=== PATIENT | female | born 1950 | race Caucasian/White ===

== ENCOUNTER 2017-12-23 09:50 | Emergency (ER) | payer MEDICARE, MEDICAID ==
[~2017-12-23] VITALS: Ht 157.5 cm; Wt 62.7 kg
[~2017-12-23 09:50] MED LIST: AMIO200T57 PO; APIX5TAB3 PO; BENZ-16 PO; BUDE10.2 INH; GUAI1TBM19 PO; INSU100V13 SQ; IPRA3AMP IH; LANTUS SQ; LOSA25TA96 PO; METO-395 PO; NITR0.4T51 SL; PANT20TA2 PO; PRED10TA PO; PRED50TA PO; ROSU40TA PO; TICA90TA PO
[2017-12-23] MEDS ORDERED: ketorolac trometh inj. 60 MG/2 ML VIAL IM ONE (11:15)
[2017-12-23 11:41] VITALS: BP 124/79
== END 2017-12-23 11:51 | disposition home or self-care (01) ==
LOC: ER 09:51
DX: M25.511 Pain in right shoulder (principal); I25.10 Atherosclerotic heart disease of native coronary artery without angina pectoris; I11.0 Hypertensive heart disease with heart failure; I50.9 Heart failure, unspecified; I25.2 Old myocardial infarction; J44.9 Chronic obstructive pulmonary disease, unspecified; E11.9 Type 2 diabetes mellitus without complications; G89.29 Other chronic pain; E78.00 Pure hypercholesterolemia, unspecified; Z85.3 Personal history of malignant neoplasm of breast; Z95.1 Presence of aortocoronary bypass graft; Z98.61 Coronary angioplasty status; Z95.0 Presence of cardiac pacemaker; Z88.5 Allergy status to narcotic agent; Z88.2 Allergy status to sulfonamides; Z88.8 Allergy status to other drugs, medicaments and biological substances; Z79.4 Long term (current) use of insulin; Z79.899 Other long term (current) drug therapy
CPT/HCPCS: 96372; 99283; A4565; J1885

== ENCOUNTER 2018-07-09 21:56 | Emergency (ER) | payer MEDICARE, MEDICAID ==
[~2018-07-09] VITALS: Ht 157.5 cm; Wt 60.0 kg
[~2018-07-09 21:56] MED LIST changes: +AMIO200T40 PO; -AMIO200T57 PO; -BENZ-16 PO; +DOCU-28 PO; +FURO-149 PO; -GUAI1TBM19 PO; +INSU100C4 SQ; +INSU100I29 SQ; -IPRA3AMP IH; +IPRA3AMP31 IH; -LANTUS SQ; +NYST1000 PO; +OMEG1CAP PO; +PRAV40TA3 PO; -PRED10TA PO; -PRED50TA PO; -ROSU40TA PO; -TICA90TA PO; +TRAM50TA2 PO
[2018-07-09 22:59] VITALS: BP 113/38
[2018-07-10] MEDS ORDERED: diphenhydrAMINE 25mg capsule PO ONE (02:20)
== END 2018-07-10 02:34 | disposition home or self-care (01) ==
LOC: ER 21:57
DX: M25.461 Effusion, right knee (principal); J44.9 Chronic obstructive pulmonary disease, unspecified; I25.10 Atherosclerotic heart disease of native coronary artery without angina pectoris; I11.0 Hypertensive heart disease with heart failure; I50.9 Heart failure, unspecified; E78.00 Pure hypercholesterolemia, unspecified; I25.2 Old myocardial infarction; K21.9 Gastro-esophageal reflux disease without esophagitis; E11.9 Type 2 diabetes mellitus without complications; G89.29 Other chronic pain; Z95.0 Presence of cardiac pacemaker; Z98.61 Coronary angioplasty status; Z88.1 Allergy status to other antibiotic agents; Z88.5 Allergy status to narcotic agent; Z88.8 Allergy status to other drugs, medicaments and biological substances; Z79.4 Long term (current) use of insulin; Z79.899 Other long term (current) drug therapy; Z60.2 Problems related to living alone
CPT/HCPCS: 73560; 99284; Q0163

== ENCOUNTER 2018-09-06 10:01 | Emergency (ER) | payer MEDICARE, MEDICAID ==
[~2018-09-06] VITALS: Ht 157.5 cm; Wt 65.9 kg
[2018-09-06 10:07] VITALS: BP 149/81
[2018-09-06] MEDS ORDERED: HYDROcodone/acetaminophen 5mg/325mg tablet PO ONE (10:25)
[2018-09-06 11:00] LABS: CLARITY,URINE CLEAR (Clear); COLOR,URINE YELLOW (Yellow); GLUCOSE, URINE 100 mg/dl (Neg); KETONES,URINE NEGATIVE (Neg); LEUKOCYTE ESTERASE ,URINE NEGATIVE (Neg); NITRITES, URINE NEGATIVE (Neg); OCCULT BLOOD,URINE NEGATIVE (Neg); PROTEIN,URINE NEGATIVE (Neg); UA COLLECTION TYPE CLN CATCH MIDSTREAM
[2018-09-06] MEDS ORDERED: acetaminophen 325mg tablet PO ONE (11:05)
== END 2018-09-06 11:33 | disposition home or self-care (01) ==
LOC: ER 10:01
DX: M25.511 Pain in right shoulder (principal); R30.0 Dysuria; I25.10 Atherosclerotic heart disease of native coronary artery without angina pectoris; I11.0 Hypertensive heart disease with heart failure; I50.9 Heart failure, unspecified; E78.00 Pure hypercholesterolemia, unspecified; I25.2 Old myocardial infarction; J44.9 Chronic obstructive pulmonary disease, unspecified; K21.9 Gastro-esophageal reflux disease without esophagitis; E11.9 Type 2 diabetes mellitus without complications; G89.29 Other chronic pain; Z98.61 Coronary angioplasty status; Z95.0 Presence of cardiac pacemaker; Z98.890 Other specified postprocedural states; Z88.1 Allergy status to other antibiotic agents; Z88.5 Allergy status to narcotic agent; Z88.2 Allergy status to sulfonamides; Z88.8 Allergy status to other drugs, medicaments and biological substances; Z79.4 Long term (current) use of insulin; Z79.899 Other long term (current) drug therapy; Z60.2 Problems related to living alone
CPT/HCPCS: 73030; 81003; 99284

== ENCOUNTER 2019-05-06 21:59 | Emergency (ER) | payer MEDICARE, MEDICAID ==
[~2019-05-06] VITALS: Ht 157.5 cm; Wt 77.3 kg
[~2019-05-06 21:59] MED LIST changes: -AMIO200T40 PO; +AMIO200T61 PO
[2019-05-06 22:45] LABS: BASOPHILS % (AUTO) 0.4 % (0-1); EOSINOPHILS # (AUTO) 0.1 X10'3 (0-0.9); EOSINOPHILS % (AUTO) 1.1 % (0-6); HEMATOCRIT 45.4 % (35.0-45.0); HEMOGLOBIN 14.6 g/dl (12.0-16.0); LYMPHOCYTES # (AUTO) 2.2 X10'3 (1.1-4.8); LYMPHOCYTES % (AUTO) 18.2 % (21-51); MEAN CORPUSCULAR HEMOGLOBIN 26.1 PG (27.0-31.0); MEAN CORPUSCULAR HGB CONC 32.3 g/dL (33.0-36.5); MEAN CORPUSCULAR VOLUME 80.8 FL (78-98); MEAN PLATELET VOLUME 9.2 FL (7.4-10.4); MONOCYTES # (AUTO) 1.7 X10'3 (0-0.9); MONOCYTES % (AUTO) 14.3 % (2-12); PLATELET COUNT 246 X10'3 (140-440); RED BLOOD COUNT 5.62 X10'6 (4.20-5.60); RED CELL DISTRIBUTION WIDTH 17.3 % (11.5-14.5); WHITE BLOOD COUNT 12.2 X10'3 (4.5-11.0)
[2019-05-06] MEDS ORDERED: acetaminophen 325mg tablet PO ONE (22:50)
[2019-05-06 22:56] LABS: CLARITY,URINE CLOUDY (Clear); COLOR,URINE YELLOW (Yellow); GLUCOSE, URINE >=1000 mg/dl (Neg); KETONES,URINE NEGATIVE (Neg); LEUKOCYTE ESTERASE ,URINE SMALL (Neg); NITRITES, URINE NEGATIVE (Neg); OCCULT BLOOD,URINE SMALL (Neg); PROTEIN,URINE NEGATIVE (Neg)
[2019-05-06 22:58] LABS: ALANINE AMINOTRANSFERASE 18 U/L (12-78); ALBUMIN 3.6 G/DL (3.4-5.0); ALBUMIN/GLOBULIN RATIO 0.8 (1.1-1.5); ALKALINE PHOSPHATASE 59 IU/L (46-116); ANION GAP 4 (8-16); ASPARTATE AMINO TRANSFERASE 11 U/L (10-37); BILIRUBIN,TOTAL 0.3 MG/DL (0.1-1.0); BLOOD UREA NITROGEN 35 MG/DL (7-18); BUN/CREATININE RATIO 22.7 (6.6-38.0); CALCIUM 9.2 MG/DL (8.5-10.1); CHLORIDE 99 MMOL/L (99-107); CREATININE 1.54 MG/DL (0.40-0.90); GLUCOSE 405 MG/DL (70-104); POTASSIUM 3.2 MMOL/L (3.5-5.1); SODIUM 137 MMOL/L (135-145); TOTAL CARBON DIOXIDE 33.7 MMOL/L (24-32); TOTAL PROTEIN 8.2 G/DL (6.4-8.2); eGFR 33 ML/MIN
[2019-05-06 22:59] LABS: UA COLLECTION TYPE CLN CATCH MIDSTREAM
[2019-05-06 23:01] LABS: PARTIAL THROMBOPLASTIN TIME 35 SECONDS (22-32)
[2019-05-06 23:02] LABS: BACTERIA,URINE 4+ /HPF (Neg); RBC,URINE NONE SEEN /HPF (0-2); SQUAMOUS EPITHELIAL CELL,UR FEW /LPF (FEW); WBC,URINE TNTC /HPF (0-4)
[2019-05-06 23:03] LABS: WBC CLUMPS,URINE MANY /HPF (NEGATIVE)
[2019-05-06] MEDS ORDERED: potassium Cl 10 mEq/100mL bag IV ONE (23:20)
[2019-05-06] MEDS ORDERED: potassium Cl 20 mEq SR tablet PO ONE (23:20)
[2019-05-06] MEDS ORDERED: normal saline 1000ml 1,000 ML IV ONE (23:20)
[2019-05-06 23:32] LABS: LIPASE 175 U/L (73-393)
[2019-05-06] MEDS ORDERED: CefTRIAXone 2gm/D5W 50ml 50 ML IV ONE (23:55)
[2019-05-07] MEDS ORDERED: PEG1POWD PO (00:35)
[2019-05-07] MEDS ORDERED: BISA-155 PO (00:35)
[2019-05-07] MEDS ORDERED: MAGN296S50 PO (00:35)
[2019-05-07] MEDS ORDERED: CIPR-230 PO (00:35)
[2019-05-07] MEDS ORDERED: GLYC-18 RC (00:36)
[2019-05-07 01:31] VITALS: BP 143/78
--- NOTE | 2019-05-10 11:59 | NUR ---
PT RETURNED CALL REGARDING URINE CULTURE. PT WAS INFORMED THAT THE MEDICATION SHE WAS INITIALLY PERSCRIBED NEEDED TO BE CHANGED PER DR MATSON AND TO DISCONTINUE THE CIPRO SHE IS CURRENTLY TAKING. PT REQUESTED THAT NEW RX BE CALLED INTO [facility] [place]. ZYVOX 600MG PO BID x7 DAYS CALLED INTO [facility] PT REQUESTED.
== END 2019-05-07 01:28 | disposition home or self-care (01) ==
LOC: ER 22:00
DX: E11.65 Type 2 diabetes mellitus with hyperglycemia (principal); K59.00 Constipation, unspecified; N39.0 Urinary tract infection, site not specified; I25.10 Atherosclerotic heart disease of native coronary artery without angina pectoris; I11.0 Hypertensive heart disease with heart failure; I50.9 Heart failure, unspecified; E78.00 Pure hypercholesterolemia, unspecified; I25.2 Old myocardial infarction; J44.9 Chronic obstructive pulmonary disease, unspecified; G47.30 Sleep apnea, unspecified; K21.9 Gastro-esophageal reflux disease without esophagitis; G89.29 Other chronic pain; Z88.1 Allergy status to other antibiotic agents; Z88.2 Allergy status to sulfonamides; Z79.4 Long term (current) use of insulin; Z79.899 Other long term (current) drug therapy; Z98.61 Coronary angioplasty status; Z95.1 Presence of aortocoronary bypass graft; Z98.890 Other specified postprocedural states; Z85.3 Personal history of malignant neoplasm of breast; Z88.5 Allergy status to narcotic agent
CPT/HCPCS: 36415; 71045; 74176; 80053; 81001; 82948; 83690; 84484; 85025; 85610; 85730; 87077; 87088; 87186; 93005; 96361; 96365; 99284; J0696; J3480; J7030

== ENCOUNTER 2019-12-24 13:25 | Emergency (ER) | payer MEDICARE, MEDICAID ==
[~2019-12-24] VITALS: Ht 160 cm; Wt 115.9 kg
[~2019-12-24 13:25] MED LIST changes: +BISA-155 PO; +GLYC-18 RC; +LIDOcaine 1% W/epiNEPHrine 1:100,000 20ml vial ONE; +MAGN296S70 PO; +PEG1POWD PO
[2019-12-24 13:28] VITALS: BP 116/62
[2019-12-24] MEDS ORDERED: HYDROcodone/acetaminophen 10/325mg tab PO ONE (13:35)
[2019-12-24] MEDS ORDERED: baclofen 10mg tablet PO PRN (13:40)
[2019-12-24] MEDS ORDERED: acetaminophen 325mg tablet PO ONE (13:45)
[2019-12-24] MEDS ORDERED: BACL-11 PO (13:54)
[2019-12-24] MEDS ORDERED: LIDO700A32 TOP (13:54)
[2019-12-24] MEDS ORDERED: LIDOcaine 5% patch TP ONE (13:55)
== END 2019-12-24 14:22 | disposition home or self-care (01) ==
LOC: ER 13:26
DX: S16.1XXA Strain of muscle, fascia and tendon at neck level, initial encounter (principal); I11.0 Hypertensive heart disease with heart failure; I50.9 Heart failure, unspecified; E78.00 Pure hypercholesterolemia, unspecified; I25.10 Atherosclerotic heart disease of native coronary artery without angina pectoris; J44.9 Chronic obstructive pulmonary disease, unspecified; G47.30 Sleep apnea, unspecified; K21.9 Gastro-esophageal reflux disease without esophagitis; E11.9 Type 2 diabetes mellitus without complications; G89.29 Other chronic pain; Z87.11 Personal history of peptic ulcer disease; Z88.1 Allergy status to other antibiotic agents; Z88.5 Allergy status to narcotic agent; Z88.2 Allergy status to sulfonamides; Z88.8 Allergy status to other drugs, medicaments and biological substances; Z79.4 Long term (current) use of insulin; Z79.899 Other long term (current) drug therapy; Z85.3 Personal history of malignant neoplasm of breast; Z95.1 Presence of aortocoronary bypass graft; X58.XXXA Exposure to other specified factors, initial encounter; Y93.89 Activity, other specified; Y92.89 Other specified places as the place of occurrence of the external cause; Y99.8 Other external cause status
CPT/HCPCS: 20552; 99284

== ENCOUNTER 2020-07-29 12:04 | Emergency (ER) | payer MEDICARE, MEDICAID ==
[~2020-07-29] VITALS: Ht 157.5 cm; Wt 68.2 kg
[~2020-07-29 12:04] MED LIST changes: -BISA-155 PO; +CLOP75TA15 PO; -GLYC-18 RC; -INSU100C4 SQ; -IPRA3AMP31 IH; -LIDOcaine 1% W/epiNEPHrine 1:100,000 20ml vial ONE; -LOSA25TA96 PO; -MAGN296S70 PO; -METO-395 PO; +METO25TA6 PO; -NYST1000 PO; -PEG1POWD PO; -PRAV40TA3 PO; +ROSU40TA PO
[2020-07-29 13:27] LABS: BASOPHILS # (AUTO) 0.1 X10'3 (0-0.2); BASOPHILS % (AUTO) 0.7 % (0-1); EOSINOPHILS # (AUTO) 0.1 X10'3 (0-0.9); EOSINOPHILS % (AUTO) 1.2 % (0-6); HEMATOCRIT 44.4 % (35.0-45.0); HEMOGLOBIN 14.2 g/dl (12.0-16.0); LYMPHOCYTES % (AUTO) 25.7 % (21-51); MEAN CORPUSCULAR HGB CONC 31.9 g/dL (33.0-36.5); MEAN CORPUSCULAR VOLUME 84.5 FL (78-98); MEAN PLATELET VOLUME 9.4 FL (7.4-10.4); MONOCYTES # (AUTO) 1.3 X10'3 (0-0.9); MONOCYTES % (AUTO) 11.4 % (2-12); NEUTROPHILS # (AUTO) 7.1 X10'3 (1.8-7.7); PLATELET COUNT 241 X10'3 (140-440); RED BLOOD COUNT 5.25 X10'6 (4.20-5.60); RED CELL DISTRIBUTION WIDTH 15.1 % (11.5-14.5); WHITE BLOOD COUNT 11.7 X10'3 (4.5-11.0)
--- NOTE | 2020-07-29 13:29 | NUR ---
JUAN MIGUEL RAFY (POA) [phone] WOULD LIKE TO BE UPDATE AND PRESENT FOR MEDICAL INFORMATION.
--- NOTE | 2020-07-29 13:40 | NUR ---
INFORMED PROVIDER THAT DAUGHTER IS POA AND THE PATIENT NEEDS A CARDIOPULMONARY TECHNOLOGIST CHIEF PRESENT FOR MEDICAL DECISIONS. HE WILL CONTACT THE DAUGHTER WITH UPDATES AFTER RESULTS.
[2020-07-29 13:41] LABS: ALANINE AMINOTRANSFERASE 15 U/L (12-78); ALBUMIN 3.6 G/DL (3.4-5.0); ALBUMIN/GLOBULIN RATIO 0.9 (1.1-1.5); ALKALINE PHOSPHATASE 48 IU/L (46-116); ANION GAP 6 (8-16); ASPARTATE AMINO TRANSFERASE 12 U/L (10-37); BILIRUBIN,TOTAL 0.3 MG/DL (0.1-1.0); BLOOD UREA NITROGEN 27 MG/DL (7-18); BUN/CREATININE RATIO 19.3 (6.6-38.0); CALCIUM 9.6 MG/DL (8.5-10.1); CHLORIDE 103 MMOL/L (99-107); GLUCOSE 59 MG/DL (70-104); POTASSIUM 3.7 MMOL/L (3.5-5.1); SODIUM 145 MMOL/L (135-145); TOTAL CARBON DIOXIDE 35.9 MMOL/L (24-32); TOTAL PROTEIN 7.8 G/DL (6.4-8.2); eGFR 37 ML/MIN
--- NOTE | 2020-07-29 13:50 | NUR ---
CALLED DAUGHTER WITH AN UPDATE AND SHE IS UPSET THAT IT TOOK 30 MINUTES TO NOTIFY CLAY PROCESSING FACTORY WORKER THAT THE PATIENT NEEDS A SCRIPT MANAGER PRESENT FOR MEDICAL UPDATES. I INFORMED HER THAT I SPOKE WITH THE PROVIDER AND HE IS AWARE TO CALL HER WITH UPDATES AFTER TEST RESULTS AND IF WE NEED HER PRESENT WE COULD ARRANGE THAT.
[2020-07-29] MEDS ORDERED: acetaminophen 325mg tablet PO ONE (14:25)
[2020-07-29] MEDS ORDERED: DOXYCYCLINE 100MG CAPSULE PO STA (15:40)
[2020-07-29] MEDS ORDERED: IPRA3AMP31 IH (16:00)
[2020-07-29] MEDS ORDERED: DOXY100C2 PO (16:00)
[2020-07-29 16:12] VITALS: BP 116/70
== END 2020-07-29 16:13 | disposition home or self-care (01) ==
LOC: ER 12:05
DX: R07.81 Pleurodynia (principal); R05 Cough; R06.7 Sneezing; I25.10 Atherosclerotic heart disease of native coronary artery without angina pectoris; I50.9 Heart failure, unspecified; E78.00 Pure hypercholesterolemia, unspecified; I11.0 Hypertensive heart disease with heart failure; I25.2 Old myocardial infarction; J44.9 Chronic obstructive pulmonary disease, unspecified; G47.30 Sleep apnea, unspecified; K21.9 Gastro-esophageal reflux disease without esophagitis; E11.9 Type 2 diabetes mellitus without complications; G89.29 Other chronic pain; Z98.61 Coronary angioplasty status; Z95.0 Presence of cardiac pacemaker; Z98.890 Other specified postprocedural states; Z79.2 Long term (current) use of antibiotics; Z88.8 Allergy status to other drugs, medicaments and biological substances; Z88.5 Allergy status to narcotic agent; Z79.01 Long term (current) use of anticoagulants; Z79.4 Long term (current) use of insulin; Z79.899 Other long term (current) drug therapy
CPT/HCPCS: 36415; 71045; 71250; 80053; 83605; 83880; 84145; 84484; 85025; 85379; 93005; 99285

== ENCOUNTER 2020-10-10 15:48 | Outpatient (CLI) | payer MEDICARE, MEDICAID ==
[~2020-10-10 15:48] MED LIST changes: +IPRA3AMP31 IH
[2020-10-10 16:30] LABS: COLOR,URINE YELLOW (Yellow); GLUCOSE, URINE 100 mg/dl (Neg); KETONES,URINE NEGATIVE (Neg); LEUKOCYTE ESTERASE ,URINE TRACE (Neg); NITRITES, URINE NEGATIVE (Neg); OCCULT BLOOD,URINE SMALL (Neg); PH,URINE 5.5 (4.8-8.0); PROTEIN,URINE NEGATIVE (Neg); UROBILINOGEN,URINE 0.2 E.U/dL (0.2-1.0)
[2020-10-10 16:33] LABS: BASOPHILS # (AUTO) 0.1 X10'3 (0-0.2); EOSINOPHILS # (AUTO) 0.1 X10'3 (0-0.9); EOSINOPHILS % (AUTO) 1.2 % (0-6); HEMATOCRIT 44.1 % (35.0-45.0); HEMOGLOBIN 14.5 g/dl (12.0-16.0); LYMPHOCYTES # (AUTO) 2.3 X10'3 (1.1-4.8); LYMPHOCYTES % (AUTO) 22.1 % (21-51); MEAN CORPUSCULAR HEMOGLOBIN 27.7 PG (27.0-31.0); MEAN CORPUSCULAR HGB CONC 32.8 g/dL (33.0-36.5); MEAN CORPUSCULAR VOLUME 84.5 FL (78-98); MONOCYTES # (AUTO) 1.4 X10'3 (0-0.9); MONOCYTES % (AUTO) 13.7 % (2-12); NEUTROPHILS # (AUTO) 6.4 X10'3 (1.8-7.7); PLATELET COUNT 228 X10'3 (140-440); RED BLOOD COUNT 5.22 X10'6 (4.20-5.60); RED CELL DISTRIBUTION WIDTH 15.4 % (11.5-14.5); WHITE BLOOD COUNT 10.4 X10'3 (4.5-11.0)
[2020-10-10 16:37] LABS: CLARITY,URINE SLIGHTLY CLOUDY (Clear); UA COLLECTION TYPE CLN CATCH MIDSTREAM
[2020-10-10 16:40] LABS: BACTERIA,URINE FEW /HPF (Neg); HYALINE CASTS 0-3 /LPF (NEGATIVE); RBC,URINE 0-2 /HPF (0-2); SQUAMOUS EPITHELIAL CELL,UR FEW /LPF (FEW); WBC,URINE 0-4 /HPF (0-4)
[2020-10-10 16:41] LABS: ALBUMIN 3.6 G/DL (3.4-5.0); ANION GAP 8 (8-16); BLOOD UREA NITROGEN 32 MG/DL (7-18); BUN/CREATININE RATIO 22.5 (6.6-38.0); CALCIUM 9.1 MG/DL (8.5-10.1); CHLORIDE 102 MMOL/L (99-107); CREATININE 1.42 MG/DL (0.40-0.90); GLUCOSE 198 MG/DL (70-104); POTASSIUM 3.6 MMOL/L (3.5-5.1); SODIUM 144 MMOL/L (135-145); TOTAL CARBON DIOXIDE 34.1 MMOL/L (24-32); eGFR 36 ML/MIN
[2020-10-10 16:45] LABS: PARTIAL THROMBOPLASTIN TIME 29 SECONDS (22-32)
== END 2020-10-10 23:59 | disposition home or self-care (01) ==
LOC: LAB 15:48
DX: I65.23 Occlusion and stenosis of bilateral carotid arteries (principal); F17.290 Nicotine dependence, other tobacco product, uncomplicated; I25.810 Atherosclerosis of coronary artery bypass graft(s) without angina pectoris; E11.9 Type 2 diabetes mellitus without complications; I95.89 Other hypotension; F17.200 Nicotine dependence, unspecified, uncomplicated; I48.3 Typical atrial flutter; I11.0 Hypertensive heart disease with heart failure; I50.22 Chronic systolic (congestive) heart failure; I50.1 Left ventricular failure, unspecified; R06.02 Shortness of breath; F17.210 Nicotine dependence, cigarettes, uncomplicated; I25.10 Atherosclerotic heart disease of native coronary artery without angina pectoris; I70.203 Unspecified atherosclerosis of native arteries of extremities, bilateral legs; R07.2 Precordial pain; J44.9 Chronic obstructive pulmonary disease, unspecified; Z01.810 Encounter for preprocedural cardiovascular examination; Z95.810 Presence of automatic (implantable) cardiac defibrillator; Z79.899 Other long term (current) drug therapy
CPT/HCPCS: 36415; 80048; 81001; 85025; 85610; 85730; 87088

== ENCOUNTER 2020-10-27 09:06 | Emergency (ER) | payer MEDICARE, MEDICAID ==
[~2020-10-27] VITALS: Ht 157.5 cm; Wt 69.1 kg
[2020-10-27 10:43] LABS: BASOPHILS # (AUTO) 0.1 X10'3 (0-0.2); BASOPHILS % (AUTO) 0.6 % (0-1); EOSINOPHILS # (AUTO) 0.1 X10'3 (0-0.9); EOSINOPHILS % (AUTO) 1.5 % (0-6); HEMATOCRIT 44.2 % (35.0-45.0); HEMOGLOBIN 14.2 g/dl (12.0-16.0); LYMPHOCYTES # (AUTO) 1.2 X10'3 (1.1-4.8); LYMPHOCYTES % (AUTO) 14.6 % (21-51); MEAN CORPUSCULAR HEMOGLOBIN 27.1 PG (27.0-31.0); MEAN CORPUSCULAR HGB CONC 32.1 g/dL (33.0-36.5); MEAN CORPUSCULAR VOLUME 84.3 FL (78-98); MEAN PLATELET VOLUME 9.1 FL (7.4-10.4); MONOCYTES # (AUTO) 1.3 X10'3 (0-0.9); MONOCYTES % (AUTO) 16.3 % (2-12); NEUTROPHILS # (AUTO) 5.4 X10'3 (1.8-7.7); PLATELET COUNT 224 X10'3 (140-440); RED BLOOD COUNT 5.25 X10'6 (4.20-5.60); RED CELL DISTRIBUTION WIDTH 15.5 % (11.5-14.5); WHITE BLOOD COUNT 8.1 X10'3 (4.5-11.0)
[2020-10-27 10:54] LABS: ALBUMIN 3.6 G/DL (3.4-5.0); ANION GAP 3 (8-16); BLOOD UREA NITROGEN 27 MG/DL (7-18); BUN/CREATININE RATIO 17.5 (6.6-38.0); CALCIUM 9.5 MG/DL (8.5-10.1); CHLORIDE 101 MMOL/L (99-107); CREATININE 1.54 MG/DL (0.40-0.90); GLUCOSE 148 MG/DL (70-104); POTASSIUM 3.9 MMOL/L (3.5-5.1); SODIUM 141 MMOL/L (135-145); TOTAL CARBON DIOXIDE 36.6 MMOL/L (24-32); eGFR 33 ML/MIN
[2020-10-27] MEDS ORDERED: acetaminophen 325mg tablet PO ONE (11:30)
[2020-10-27] MEDS ORDERED: DOXY100C43 PO (11:44)
[2020-10-27] MEDS: doxycycline inj 100 MG in normal saline 100ml IV soln 100 ML IV ONE ×2 (12:14→13:29)
[2020-10-27 15:20] VITALS: BP 153/89
== END 2020-10-27 15:23 | disposition home or self-care (01) ==
LOC: ER 09:06
DX: L03.313 Cellulitis of chest wall (principal); B99.8 Other infectious disease; R51.9 Headache, unspecified; I25.10 Atherosclerotic heart disease of native coronary artery without angina pectoris; I11.0 Hypertensive heart disease with heart failure; I50.9 Heart failure, unspecified; E78.00 Pure hypercholesterolemia, unspecified; I25.2 Old myocardial infarction; J44.9 Chronic obstructive pulmonary disease, unspecified; K21.9 Gastro-esophageal reflux disease without esophagitis; E11.9 Type 2 diabetes mellitus without complications; G89.29 Other chronic pain; Z87.11 Personal history of peptic ulcer disease; Z85.3 Personal history of malignant neoplasm of breast; Z98.890 Other specified postprocedural states; Z95.0 Presence of cardiac pacemaker; Z60.2 Problems related to living alone; Z88.1 Allergy status to other antibiotic agents; Z88.5 Allergy status to narcotic agent; Z88.2 Allergy status to sulfonamides; Z88.8 Allergy status to other drugs, medicaments and biological substances; Z79.2 Long term (current) use of antibiotics; Z79.4 Long term (current) use of insulin; Z79.899 Other long term (current) drug therapy
CPT/HCPCS: 36415; 70450; 71045; 80048; 83605; 84145; 85025; 85610; 87040; 93005; 96365; 96366; 99285; J3490

== ENCOUNTER 2021-05-30 23:19 | Emergency (ER) | payer MEDICARE, MEDICAID ==
[~2021-05-30] VITALS: Ht 157.5 cm; Wt 71.8 kg
[~2021-05-30 23:19] MED LIST changes: +LOP25T PO; -METO25TA6 PO; -OMEG1CAP PO; +OMEG1CAP61 PO
[2021-05-30 23:21] VITALS: BP 136/69
[2021-05-30 23:51] LABS: BASOPHILS # (AUTO) 0.1 X10'3 (0-0.2); BASOPHILS % (AUTO) 0.4 % (0-1); EOSINOPHILS # (AUTO) 0.1 X10'3 (0-0.9); EOSINOPHILS % (AUTO) 0.6 % (0-6); HEMATOCRIT 46.4 % (35.0-45.0); HEMOGLOBIN 14.8 g/dl (12.0-16.0); LYMPHOCYTES # (AUTO) 2.1 X10'3 (1.1-4.8); LYMPHOCYTES % (AUTO) 16.1 % (21-51); MEAN CORPUSCULAR HGB CONC 31.9 g/dL (33.0-36.5); MEAN CORPUSCULAR VOLUME 84.5 FL (78-98); MEAN PLATELET VOLUME 9.3 FL (7.4-10.4); MONOCYTES # (AUTO) 1.7 X10'3 (0-0.9); MONOCYTES % (AUTO) 13.4 % (2-12); NEUTROPHILS % (AUTO) 69.5 % (42-75); PLATELET COUNT 157 X10'3 (140-440); RED BLOOD COUNT 5.49 X10'6 (4.20-5.60); RED CELL DISTRIBUTION WIDTH 16.7 % (11.5-14.5); WHITE BLOOD COUNT 12.9 X10'3 (4.5-11.0)
[2021-05-31 00:08] LABS: ALANINE AMINOTRANSFERASE 30 U/L (12-78); ALBUMIN 3.7 G/DL (3.4-5.0); ALBUMIN/GLOBULIN RATIO 0.9 (1.1-1.5); ALKALINE PHOSPHATASE 78 IU/L (46-116); ANION GAP 2 (8-16); ASPARTATE AMINO TRANSFERASE 19 U/L (10-37); BILIRUBIN,TOTAL 0.4 MG/DL (0.1-1.0); BLOOD UREA NITROGEN 26 MG/DL (7-18); CHLORIDE 102 MMOL/L (99-107); CREATININE 1.62 MG/DL (0.40-0.90); GLUCOSE 322 MG/DL (70-104); POTASSIUM 4.2 MMOL/L (3.5-5.1); SODIUM 141 MMOL/L (135-145); TOTAL CARBON DIOXIDE 37.3 MMOL/L (24-32); eGFR 31 ML/MIN
[2021-05-31] MEDS ORDERED: DOXYCYCLINE 100MG CAPSULE PO STA (00:14)
[2021-05-31] MEDS ORDERED: albuterol 2.5 MG/3 ML nebule CONTNEB PRN (00:15)
[2021-05-31] MEDS ORDERED: methylPREDNISolone sod succ 125mg/2ml vial IV ONE (00:15)
[2021-05-31 00:32] LABS: MAGNESIUM 2.3 MG/DL (1.5-2.4)
[2021-05-31] MEDS ORDERED: DOXY-411 PO (02:51)
[2021-05-31] MEDS ORDERED: DEXA6TAB6 PO (02:51)
[2021-05-31] MEDS ORDERED: BUDE10.2 INH ×2 (02:51)
== END 2021-05-31 03:58 | disposition home or self-care (01) ==
LOC: ER 23:19
DX: J44.1 Chronic obstructive pulmonary disease with (acute) exacerbation (principal); Z20.822 Contact with and (suspected) exposure to COVID-19; R06.02 Shortness of breath; R05 Cough; J40 Bronchitis, not specified as acute or chronic; I25.10 Atherosclerotic heart disease of native coronary artery without angina pectoris; I13.0 Hypertensive heart and chronic kidney disease with heart failure and stage 1 through stage 4 chronic kidney disease, or unspecified chronic kidney disease; E11.22 Type 2 diabetes mellitus with diabetic chronic kidney disease; N18.9 Chronic kidney disease, unspecified; E78.00 Pure hypercholesterolemia, unspecified; I25.2 Old myocardial infarction; J44.9 Chronic obstructive pulmonary disease, unspecified; K21.9 Gastro-esophageal reflux disease without esophagitis; G89.29 Other chronic pain; Z87.11 Personal history of peptic ulcer disease; Z85.3 Personal history of malignant neoplasm of breast; Z98.890 Other specified postprocedural states; Z95.0 Presence of cardiac pacemaker; Z60.2 Problems related to living alone; Z88.1 Allergy status to other antibiotic agents; Z88.8 Allergy status to other drugs, medicaments and biological substances; Z88.5 Allergy status to narcotic agent; Z88.2 Allergy status to sulfonamides; Z79.4 Long term (current) use of insulin; Z79.899 Other long term (current) drug therapy
CPT/HCPCS: 36415; 71045; 80053; 83605; 83735; 83880; 84145; 85025; 87040; 87635; 93005; 94640; 94644; 96374; 99285; C9803; J2930; 94760; A7015

== ENCOUNTER 2021-08-19 21:55 | Emergency (ER) | payer MEDICARE, MEDICAID ==
[~2021-08-19] VITALS: Ht 160 cm; Wt 77.3 kg
[~2021-08-19 21:55] MED LIST changes: +DEXA6TAB6 PO
[2021-08-19 21:58] VITALS: BP 177/99
[2021-08-19] MEDS ORDERED: LIDOcaine 5% patch TP STA (22:31)
[2021-08-19] MEDS ORDERED: acetaminophen 325mg tablet PO ONE (22:35)
[2021-08-19] MEDS ORDERED: LIDO700A32 TOP (23:47)
[2021-08-19] MEDS ORDERED: baclofen 10mg tablet PO STA (23:59)
[2021-08-20] MEDS ORDERED: HYDROcodone/acetaminophen 5mg/325mg tablet PO ONE
[2021-08-20] MEDS ORDERED: ondansetron 4mg rapidly disintigrating tab PO ONE (00:10)
== END 2021-08-20 00:38 | disposition home or self-care (01) ==
LOC: ER 21:56
DX: S16.1XXA Strain of muscle, fascia and tendon at neck level, initial encounter (principal); M54.12 Radiculopathy, cervical region; I25.10 Atherosclerotic heart disease of native coronary artery without angina pectoris; E78.00 Pure hypercholesterolemia, unspecified; I11.0 Hypertensive heart disease with heart failure; I50.9 Heart failure, unspecified; I25.2 Old myocardial infarction; K21.9 Gastro-esophageal reflux disease without esophagitis; Z86.14 Personal history of Methicillin resistant Staphylococcus aureus infection; G89.29 Other chronic pain; Z98.82 Breast implant status; Z95.5 Presence of coronary angioplasty implant and graft; Z95.0 Presence of cardiac pacemaker; Z88.2 Allergy status to sulfonamides; Z88.1 Allergy status to other antibiotic agents; Z88.8 Allergy status to other drugs, medicaments and biological substances; Z91.014 Allergy to mammalian meats; Z79.899 Other long term (current) drug therapy; W19.XXXA Unspecified fall, initial encounter; Y93.89 Activity, other specified; Y92.89 Other specified places as the place of occurrence of the external cause; Y99.8 Other external cause status
CPT/HCPCS: 73030; 99284

== ENCOUNTER 2022-10-16 15:34 | Outpatient (CLI) | payer MEDICARE, MEDICAID ==
[~2022-10-16 15:34] MED LIST changes: +LIDO700A32 TOP
== END 2022-10-16 23:59 | disposition home or self-care (01) ==
LOC: RAD 15:34
PROVIDERS: ATTEND Family Medicine
DX: R13.12 Dysphagia, oropharyngeal phase (principal); C34.90 Malignant neoplasm of unspecified part of unspecified bronchus or lung; Z79.899 Other long term (current) drug therapy
CPT/HCPCS: 74230

== ENCOUNTER 2023-04-01 17:54 | Inpatient (IN) | payer MEDICARE, MEDICAID ==
[~2023-04-01] VITALS: Ht 165.1 cm; Wt 65.0 kg
[~2023-04-01 17:54] MED LIST changes: +ALBU17AE26 PO; -AMIO200T61 PO; -APIX5TAB3 PO; +ASPI-1071 PO; +ATI1T PO; +ATOR20TA66 PO; -CLOP75TA15 PO; +COR3.125T PO; -DEXA6TAB6 PO; +DICL100G30 TOP; -FURO-149 PO; +FURO40TA4 PO; +HYDR-3965 PO; -IPRA3AMP31 IH; +LEVO250T74 PO; -LIDO700A32 TOP; -LOP25T PO; -OMEG1CAP61 PO; -PANT20TA2 PO; +PRED10TA23 PO; -ROSU40TA PO; -TRAM50TA2 PO
[2023-04-01] MEDS ORDERED: methylPREDNISolone sod succ 125mg/2ml vial IV ONE (18:20)
[2023-04-01] MEDS ORDERED: ipratropium/albuterol 3ml nebule NEB ONE (18:23)
[2023-04-01 18:41] LABS: ABG BASE EXCESS 7.1 mmol/L (-2.0-2.0); ABG HCO3 32.1 mmol/L (22.0-26.0); ABG OXYGEN SATURATION 92.7 % (94-97); ABG PO2 (T) 64.2 mmHg (75.0-100.0); ALLEN'S TEST POSITIVE; FMetHb 0.2 % (0.0-1.5); FO2Hb 91.6 % (94-97); PATIENT TEMPERATURE 37.2; TOTAL HEMOGLOBIN 14.5 G/dl (12.0-16.0)
--- NOTE | 2023-04-01 19:05 | NUR ---
Received call from Molly, [id number]. Patient gave verbal consent for this RN to speak to Molly regarding her care. Update provided.
[2023-04-01 19:12] LABS: BASOPHILS # (AUTO) 0.2 X10'3 (0-0.2); BASOPHILS % (AUTO) 0.6 % (0-1); EOSINOPHILS % (AUTO) 0 % (0-6); HEMATOCRIT 42.6 % (35.0-45.0); HEMOGLOBIN 13.1 g/dl (12.0-16.0); LYMPHOCYTES # (AUTO) 1.6 X10'3 (1.1-4.8); LYMPHOCYTES % (AUTO) 5.4 % (21-51); MEAN CORPUSCULAR HEMOGLOBIN 23.2 PG (27.0-31.0); MEAN CORPUSCULAR HGB CONC 30.8 g/dL (33.0-36.5); MEAN CORPUSCULAR VOLUME 75.4 FL (78-98); MEAN PLATELET VOLUME 9.3 FL (7.4-10.4); MONOCYTES # (AUTO) 2.7 X10'3 (0-0.9); MONOCYTES % (AUTO) 9.2 % (2-12); NEUTROPHILS # (AUTO) 24.5 X10'3 (1.8-7.7); NEUTROPHILS % (AUTO) 84.8 % (42-75); PLATELET COUNT 261 X10'3 (140-440); RED BLOOD COUNT 5.65 X10'6 (4.20-5.60); RED CELL DISTRIBUTION WIDTH 17.6 % (11.5-14.5)
[2023-04-01 19:27] LABS: ALANINE AMINOTRANSFERASE 16 U/L (12-78); ALBUMIN 3.5 G/DL (3.4-5.0); ALBUMIN/GLOBULIN RATIO 0.7 (1.1-1.5); ALKALINE PHOSPHATASE 65 IU/L (46-116); ANION GAP 6 (8-16); ASPARTATE AMINO TRANSFERASE 19 U/L (10-37); BILIRUBIN,TOTAL 0.8 MG/DL (0.1-1.0); BLOOD UREA NITROGEN 41 MG/DL (7-18); BUN/CREATININE RATIO 29.7 (10.0-20.0); CALCIUM 9.7 MG/DL (8.5-10.1); CHLORIDE 92 MMOL/L (99-107); CREATININE 1.38 MG/DL (0.40-0.90); POTASSIUM 4.6 MMOL/L (3.5-5.1); SODIUM 135 MMOL/L (135-145); TOTAL CARBON DIOXIDE 37.5 MMOL/L (24-32); TOTAL PROTEIN 8.4 G/DL (6.4-8.2); eGFR 37 ML/MIN
[2023-04-01 19:32] LABS: GLUCOSE 464 MG/DL (70-104)
[2023-04-01 19:41] LABS: WHITE BLOOD COUNT 28.9 X10'3 (4.5-11.0)
[2023-04-01] MEDS ORDERED: piperacillin/tazo 3.375gm/50ml 50 ML IV ONE (19:45)
[2023-04-01 20:04] LABS: ANISOCYTOSIS 1+; MICROCYTOSIS 1+; PLATELET ESTIMATE NORMAL; TOTAL CELLS COUNTED 100
[2023-04-01 20:05] LABS: ELLIPTOCYTES FEW; HYPOCHROMASIA 1+; LARGE PLATELETS FEW
[2023-04-01] MEDS ORDERED: normal saline 1000ML IV soln IVB ONE (20:10)
[2023-04-01] MEDS ORDERED: insulin regular, human 10 units/0.1 ml syringe SQ ONE (20:10)
--- NOTE | 2023-04-01 21:05 | NUR ---
per dr mcgill only 500cc of ordered bolus given
[2023-04-01] MEDS ORDERED: magnesium 2GM in 50ml NS 50 ML IV PRN (22:35)
[2023-04-01] MEDS ORDERED: magnesium hydroxide 30ml (MOM) UD suspension PO PRN (22:35)
[2023-04-01] MEDS ORDERED: potassium Cl 40MEQ/1/2NS 520ml 520 ML IV PRN (22:35)
[2023-04-01] MEDS ORDERED: HYDROcodone/acetaminophen 5mg/325mg tablet PO PRN (22:35)
[2023-04-01] MEDS ORDERED: ondansetron/PF 4mg/2ml inj IV PRN (22:35)
[2023-04-01] MEDS ORDERED: mag hydrox/Alum hydrox/simeth 30ml oral suspension PO PRN (22:35)
[2023-04-01] MEDS ORDERED: magnesium 4gm in 100ml NS 100 ML IV PRN (22:35)
[2023-04-01] MEDS ORDERED: DEXTROSE 15 GM of carb/4 tabs (each vial/BOTTLE has 4 tablets) PO PRN ×2 (22:40)
[2023-04-01] MEDS ORDERED: dextrose 50%-water 50ml dispensing syringe IV PRN ×2 (22:40)
[2023-04-01] MEDS ORDERED: glucagon, human recombinant 1mg kit SUBCUT PRN (22:40)
[2023-04-01] MEDS ORDERED: albuterol 2.5 MG/3 ML nebule NEB PRN (22:40)
[2023-04-01] MEDS ORDERED: MESSAGE TO PHARMACY PO ONE (22:40)
--- NOTE | 2023-04-01 22:46 | NUR ---
PT HAS BEEN INCONTINENT OF BOWEL
[2023-04-01] MEDS ORDERED: loperamide 2mg capsule PO ONE (23:45)
--- NOTE | 2023-04-02 01:30 | NUR ---
Approx 0130 Received Report From ER nurse Maribeth LAZCANO Approx 0130 to notify this NEUROLOGY SPECIALIST that Pt. was brought to ER [facility] Amb[facility] and Pt. was being admitted to PCU from ER/ Intal C/o SOB with productive cough at home, Pt. is A&O x 4, However Does not Generally follow Commands, Er nurse told this NEUROLOGY SPECIALIST that Pt, is a high fall risk However Pt. un-Cooperative and keeps standing and transferring self to commode. was recently discharged after a short stay for pneumonia according to ER Nurse report. Pt. Brought up to unit by Nurse with W/c with N/C Present to keep Pt. From Desating. Aid Assisted this solder sprayer in Prepping room and Assisted Pt. From W/c to commode Per Pt. Request. Per ER Nurse, Stool Specimen Obtained in ER to Rule out C-Diff, Pt. Placed on Contact precautions Per facility protocol upon arrival to unit. Pt. Pt. Is Currently Resting in bed with HOB Elevated, BLL, VSS At this time, No C/o pain, or S/sx of distress noted. Pt. in Agreement with this NEUROLOGY SPECIALIST Doing Admission Assessment. Will Continue to be monitored.
--- NOTE | 2023-04-02 01:45 | NUR ---
Patient in room PCU 3011. I have received report from Ivanna RN and had the opportunity to ask questions and assume patient care.
[2023-04-02 04:34] VITALS: BP 120/72
--- NOTE | 2023-04-02 06:51 | NUR ---
Patient in room PCU 3011. I have received report from ANNEL Garcia and had the opportunity to ask questions and assume patient care.
[2023-04-02 06:54] VITALS: BP 118/67
[2023-04-02] MEDS: piperacillin/tazo 3.375gm/50ml 50 ML IV SCH ×3 (07:08→19:55)
[2023-04-02 07:18] LABS: BASOPHILS % (AUTO) 0.1 % (0-1); EOSINOPHILS % (AUTO) 0 % (0-6); LYMPHOCYTES # (AUTO) 0.7 X10'3 (1.1-4.8); LYMPHOCYTES % (AUTO) 2.9 % (21-51); MEAN PLATELET VOLUME 9.4 FL (7.4-10.4); MONOCYTES # (AUTO) 0.9 X10'3 (0-0.9); MONOCYTES % (AUTO) 3.6 % (2-12); NEUTROPHILS # (AUTO) 23.6 X10'3 (1.8-7.7); NEUTROPHILS % (AUTO) 93.4 % (42-75); PLATELET COUNT 210 X10'3 (140-440); RED BLOOD COUNT 5.52 X10'6 (4.20-5.60)
--- NOTE | 2023-04-02 07:38 | NUR ---
Problems reprioritized. Patient report given, questions answered & plan of care reviewed with Leland LAZCANO.
[2023-04-02 07:44] LABS: ALANINE AMINOTRANSFERASE 11 U/L (12-78); ALBUMIN 2.7 G/DL (3.4-5.0); ALBUMIN/GLOBULIN RATIO 0.6 (1.1-1.5); ALKALINE PHOSPHATASE 53 IU/L (46-116); ANION GAP 7 (8-16); ASPARTATE AMINO TRANSFERASE 7 U/L (10-37); BILIRUBIN,TOTAL 0.8 MG/DL (0.1-1.0); BLOOD UREA NITROGEN 39 MG/DL (7-18); BUN/CREATININE RATIO 34.2 (10.0-20.0); CALCIUM 8.9 MG/DL (8.5-10.1); CHLORIDE 94 MMOL/L (99-107); CREATININE 1.14 MG/DL (0.40-0.90); MAGNESIUM 2.3 MG/DL (1.5-2.4); POTASSIUM 4.3 MMOL/L (3.5-5.1); SODIUM 135 MMOL/L (135-145); TOTAL CARBON DIOXIDE 34.2 MMOL/L (24-32); eGFR 47 ML/MIN
[2023-04-02 07:49] LABS: GLUCOSE 491 MG/DL (70-104)
--- NOTE | 2023-04-02 07:55 | NUR ---
Message: room 11a [facility] - serum glucos of 491 - noc shift missed an insulin intervention - will cover accordingly - jake rn - [phone]
[2023-04-02] MEDS: docusate sod 100mg capsule PO SCH ×2 (08:00→19:55)
[2023-04-02] MEDS ORDERED: methylPREDNISolone sod succ/PF 40mg inj. IV SCH (08:00)
[2023-04-02] MEDS: K and/or MAG REPLACEMENT MC SCH ×2 (08:00→20:00)
[2023-04-02 08:07] LABS: HEMATOCRIT 41.2 % (35.0-45.0); HEMOGLOBIN 12.9 g/dl (12.0-16.0); MEAN CORPUSCULAR HEMOGLOBIN 23.4 PG (27.0-31.0); MEAN CORPUSCULAR HGB CONC 31.4 g/dL (33.0-36.5); MEAN CORPUSCULAR VOLUME 74.4 FL (78-98); RED CELL DISTRIBUTION WIDTH 16.8 % (11.5-14.5)
--- NOTE | 2023-04-02 08:37 | NUR ---
Message: [phone] Dolly Chapman- WBC 27. Down from 28.9 yesterday- [place] [phone]
[2023-04-02 09:11] LABS: C DIFF SPECIMEN=DIARRHEA? ACCEPTABLE; C DIFFICILE TOXINS A&B NEGATIVE (Neg)
[2023-04-02 09:24] LABS: ANISOCYTOSIS 1+; MICROCYTOSIS 1+; PLATELET ESTIMATE NORMAL; TOTAL CELLS COUNTED 100
[2023-04-02 09:25] LABS: HYPOCHROMASIA 1+; STOMATOCYTES 1+
[2023-04-02 09:30] LABS: LARGE PLATELETS FEW
[2023-04-02] MEDS: insulin Lispro (HumaLOG) vial - multi-dose SQ SCH ×5 (09:30→21:42)
[2023-04-02 11:37] VITALS: BP 126/66
--- NOTE | 2023-04-02 12:08 | NUR ---
Message: [phone]- Dolly Chapman-pt BG is 567. this Am she was 475 and given 18 units of humalog after breakfast. Do you want to give a insulin dose now and treat again after lunch? please advise. - Mack [id number]
--- NOTE | 2023-04-02 12:17 | NUR ---
belkis: 3011- Dolly Chapman- pt asking for something for her yeast infection in her "ama haw." [place] [facility] [place]
[2023-04-02] MEDS ORDERED: fluconazole 150mg tablet PO ONE (12:30)
--- NOTE | 2023-04-02 12:30 | NUR ---
Dr. Jacques in to see patient and ordered to give patient correctional dose of insulin per protocol now and then adminster nutritional dose after she eats.
[2023-04-02] MEDS: lactose-reduced food (Ensure Enlive) - 237ml bottle PO SCH ×2 (13:00→18:12)
[2023-04-02] MEDS: ipratropium/albuterol 3ml nebule NEB SCH ×3 (15:00→23:00)
[2023-04-02 15:31] VITALS: BP 98/60
[2023-04-02] MEDS: methylPREDNISolone sod succ/PF 40mg inj. IV SCH ×2 (17:10→23:31)
[2023-04-02 18:00] VITALS: BP 103/47
--- NOTE | 2023-04-02 18:21 | NUR ---
Problems reprioritized. Patient report given, questions answered & plan of care reviewed with NENO tripp.
--- NOTE | 2023-04-02 18:27 | NUR ---
Patient in room PCU 3011. I have received report from Leland LAZCANO, and had the opportunity to ask questions and assume patient care.
[2023-04-02] MEDS: insulin glargine (Lantus) pen - multi-dose SQ SCH (21:34)
[2023-04-02 22:00] VITALS: BP 115/44
--- NOTE | 2023-04-02 22:14 | NUR ---
Pt HS BS was 453, Dr. Alvarez was notified of critical BS value. Pt is asymptomatic. Pt is receiving 40mg of solumedrol. No new orders were given by the provider. Pt was covered with 13 units of humalog and 12 units of Lantus. will continue to monitor.
[2023-04-03] MEDS: ipratropium/albuterol 3ml nebule NEB SCH ×6 (03:00→23:00)
[2023-04-03 03:18] VITALS: BP 98/57
[2023-04-03] MEDS: piperacillin/tazo 3.375gm/50ml 50 ML IV SCH ×3 (04:52→21:55)
[2023-04-03 06:00] VITALS: BP 105/61
--- NOTE | 2023-04-03 06:35 | NUR ---
Problems reprioritized. Patient report given, questions answered & plan of care reviewed with Leland LAZCANO. Pt stable at shift change.
--- NOTE | 2023-04-03 06:43 | NUR ---
Patient in room PCU 3011. I have received report from NENO Blanton and had the opportunity to ask questions and assume patient care.
[2023-04-03 06:47] LABS: BASOPHILS # (AUTO) 0.1 X10'3 (0-0.2); BASOPHILS % (AUTO) 0.3 % (0-1); EOSINOPHILS % (AUTO) 0 % (0-6); LYMPHOCYTES # (AUTO) 1.1 X10'3 (1.1-4.8); MEAN PLATELET VOLUME 9.1 FL (7.4-10.4); MONOCYTES # (AUTO) 1.1 X10'3 (0-0.9); MONOCYTES % (AUTO) 3.9 % (2-12); NEUTROPHILS % (AUTO) 91.8 % (42-75); RED BLOOD COUNT 5.91 X10'6 (4.20-5.60)
[2023-04-03 07:22] LABS: ALANINE AMINOTRANSFERASE 13 U/L (12-78); ALBUMIN 2.8 G/DL (3.4-5.0); ALBUMIN/GLOBULIN RATIO 0.6 (1.1-1.5); ALKALINE PHOSPHATASE 54 IU/L (46-116); ANION GAP 8 (8-16); ASPARTATE AMINO TRANSFERASE 12 U/L (10-37); BILIRUBIN,TOTAL 0.4 MG/DL (0.1-1.0); BLOOD UREA NITROGEN 45 MG/DL (7-18); BUN/CREATININE RATIO 42.5 (10.0-20.0); CALCIUM 9.7 MG/DL (8.5-10.1); CHLORIDE 97 MMOL/L (99-107); CREATININE 1.06 MG/DL (0.40-0.90); GLUCOSE 139 MG/DL (70-104); MAGNESIUM 2.4 MG/DL (1.5-2.4); POTASSIUM 4.1 MMOL/L (3.5-5.1); SODIUM 136 MMOL/L (135-145); TOTAL CARBON DIOXIDE 31.3 MMOL/L (24-32); TOTAL PROTEIN 7.6 G/DL (6.4-8.2); eGFR 51 ML/MIN
[2023-04-03] MEDS: methylPREDNISolone sod succ/PF 40mg inj. IV SCH ×2 (07:43→16:24)
[2023-04-03] MEDS: lactose-reduced food (Ensure Enlive) - 237ml bottle PO SCH ×3 (07:48→18:01)
[2023-04-03] MEDS: docusate sod 100mg capsule PO SCH ×2 (07:48→20:00)
[2023-04-03] MEDS: K and/or MAG REPLACEMENT MC SCH ×2 (08:00→19:54)
[2023-04-03 09:04] LABS: WHITE BLOOD COUNT 28.4 X10'3 (4.5-11.0)
[2023-04-03 09:05] LABS: HEMATOCRIT 43.8 % (35.0-45.0); HEMOGLOBIN 13.6 g/dl (12.0-16.0); MEAN CORPUSCULAR HGB CONC 30.9 g/dL (33.0-36.5); MEAN CORPUSCULAR VOLUME 74.4 FL (78-98); PLATELET COUNT 242 X10'3 (140-440)
--- NOTE | 2023-04-03 09:06 | NUR ---
Message: [id number]- Dolly Chapman- WBC 28.4. Was 27 yesterday. [place] [facility] [phone]
[2023-04-03] MEDS: insulin Lispro (HumaLOG) vial - multi-dose SQ SCH ×3 (09:54→19:48)
[2023-04-03 10:15] LABS: ANISOCYTOSIS 1+; LARGE PLATELETS FEW; MICROCYTOSIS 1+; PLATELET ESTIMATE NORMAL; TOTAL CELLS COUNTED 100
--- NOTE | 2023-04-03 11:00 | NUR ---
Patient refused to have 1100 vitals done.
[2023-04-03] MEDS: acetaminophen 325mg tablet PO PRN (11:10)
[2023-04-03 18:00] VITALS: BP 120/43
--- NOTE | 2023-04-03 18:23 | NUR ---
Problems reprioritized. Patient report given, questions answered & plan of care reviewed with NENO Blanton.
--- NOTE | 2023-04-03 19:46 | NUR ---
patient with visiter and didnt want SVN tx till later
[2023-04-03] MEDS: insulin glargine (Lantus) pen - multi-dose SQ SCH (21:00)
--- NOTE | 2023-04-03 22:07 | NUR ---
Pt is non compliant with diet, family bring outside food for pt to eat. Humalog coverage for dinner was 75units for a BS of 366 and 97carbs. Pt is a level 6. BS is 404, nurse took BS twice per protocol, called Dr. Alvarez. who stated to give 30 units of lantus.
[2023-04-03] MEDS ORDERED: nitroGLYCERIN 0.4mg SUBLingual tab SL PRN (22:15)
[2023-04-03] MEDS ORDERED: albuterol 2.5 MG/3 ML nebule NEB PRN ×2 (22:15→22:31)
[2023-04-03] MEDS ORDERED: LORazepam 1 MG tablet PO PRN (22:15)
[2023-04-03] MEDS ORDERED: insulin glargine (Lantus) pen - multi-dose SQ ONE (22:15)
[2023-04-03] MEDS ORDERED: albuterol 2.5 MG/3 ML nebule NEB SCH (22:26)
[2023-04-03] MEDS: heparin, porcine 5000 units/ml vial SQ SCH (22:32)
[2023-04-03 23:41] VITALS: BP 109/54
[2023-04-04] MEDS: methylPREDNISolone sod succ/PF 40mg inj. IV SCH ×3 (00:55→16:51)
[2023-04-04] MEDS: ipratropium/albuterol 3ml nebule NEB SCH ×6 (03:00→23:18)
[2023-04-04] MEDS: piperacillin/tazo 3.375gm/50ml 50 ML IV SCH ×3 (04:19→19:24)
--- NOTE | 2023-04-04 05:21 | NUR ---
pt refused 0200 vital signs, wanted to sleep and not be bothered. Addendum: 04/04/23 at 0522 by Franny Monroe RN Amended: Links added.
--- NOTE | 2023-04-04 06:29 | NUR ---
Problems reprioritized. Patient report given, questions answered & plan of care reviewed with Irma LAZCANO. Pt stable at shift change.
--- NOTE | 2023-04-04 06:46 | NUR ---
Patient in room PCU 3011. I have received report from Franny LAZCANO and had the opportunity to ask questions and assume patient care.
[2023-04-04 07:00] VITALS: BP 118/61
[2023-04-04] MEDS: budesonide 0.5mg/2ml UD nebule IH SCH ×2 (07:26→19:02)
[2023-04-04] MEDS: K and/or MAG REPLACEMENT MC SCH ×2 (07:54→20:05)
[2023-04-04] MEDS ORDERED: docusate sod 100mg capsule PO SCH (08:00)
[2023-04-04] MEDS: DICLOFENAC SODIUM 1% gel 1 APPLIC APPLIC TP SCH ×4 (08:00→21:00)
[2023-04-04] MEDS: docusate sod 100mg capsule PO SCH ×2 (08:00→19:24)
[2023-04-04] MEDS: carVEDilol 3.125mg tablet PO SCH ×2 (08:02→19:24)
[2023-04-04] MEDS: furosemide 40mg tablet PO SCH (08:03)
[2023-04-04] MEDS: aspirin 81mg, enteric-coated 1 TAB TABLET.DR PO SCH (08:03)
[2023-04-04] MEDS: atorvastatin 20mg tablet PO SCH (08:04)
[2023-04-04] MEDS: heparin, porcine 5000 units/ml vial SQ SCH ×2 (08:05→19:25)
[2023-04-04] MEDS: acetaminophen 325mg tablet PO PRN ×2 (08:07→17:42)
[2023-04-04] MEDS: lactose-reduced food (Ensure Enlive) - 237ml bottle PO SCH ×3 (08:16→18:00)
[2023-04-04 08:49] LABS: BASOPHILS % (AUTO) 0 % (0-1); EOSINOPHILS % (AUTO) 0 % (0-6); LYMPHOCYTES # (AUTO) 0.8 X10'3 (1.1-4.8); LYMPHOCYTES % (AUTO) 5.7 % (21-51); MEAN PLATELET VOLUME 9.2 FL (7.4-10.4); MONOCYTES # (AUTO) 0.7 X10'3 (0-0.9); MONOCYTES % (AUTO) 4.7 % (2-12); NEUTROPHILS # (AUTO) 12.4 X10'3 (1.8-7.7); NEUTROPHILS % (AUTO) 89.6 % (42-75); PLATELET COUNT 212 X10'3 (140-440); WHITE BLOOD COUNT 13.9 X10'3 (4.5-11.0)
[2023-04-04] MEDS: insulin Lispro (HumaLOG) vial - multi-dose SQ SCH ×3 (09:21→19:29)
[2023-04-04 09:23] LABS: ALANINE AMINOTRANSFERASE 13 U/L (12-78); ALBUMIN 2.6 G/DL (3.4-5.0); ALBUMIN/GLOBULIN RATIO 0.6 (1.1-1.5); ALKALINE PHOSPHATASE 50 IU/L (46-116); ANION GAP 8 (8-16); ASPARTATE AMINO TRANSFERASE 11 U/L (10-37); BILIRUBIN,TOTAL 0.4 MG/DL (0.1-1.0); BLOOD UREA NITROGEN 38 MG/DL (7-18); BUN/CREATININE RATIO 31.7 (10.0-20.0); CALCIUM 9.2 MG/DL (8.5-10.1); CHLORIDE 100 MMOL/L (99-107); GLUCOSE 150 MG/DL (70-104); MAGNESIUM 2.3 MG/DL (1.5-2.4); POTASSIUM 4.3 MMOL/L (3.5-5.1); SODIUM 142 MMOL/L (135-145); TOTAL CARBON DIOXIDE 33.9 MMOL/L (24-32); TOTAL PROTEIN 6.9 G/DL (6.4-8.2); eGFR 44 ML/MIN
[2023-04-04 09:29] LABS: HEMATOCRIT 39.1 % (35.0-45.0); HEMOGLOBIN 12.4 g/dl (12.0-16.0); MEAN CORPUSCULAR HEMOGLOBIN 23.8 PG (27.0-31.0); MEAN CORPUSCULAR HGB CONC 31.7 g/dL (33.0-36.5); RED BLOOD COUNT 5.21 X10'6 (4.20-5.60)
[2023-04-04 09:30] LABS: RED CELL DISTRIBUTION WIDTH 17.3 % (11.5-14.5)
[2023-04-04 11:00] VITALS: BP 105/44
[2023-04-04 11:43] LABS: ANISOCYTOSIS 1+; LARGE PLATELETS FEW; MICROCYTOSIS 1+; PLATELET ESTIMATE NORMAL
[2023-04-04 11:44] LABS: ELLIPTOCYTES FEW; ROULEAUX 2+
[2023-04-04 15:00] VITALS: BP 121/33
[2023-04-04 18:00] VITALS: BP 123/69
--- NOTE | 2023-04-04 18:21 | NUR ---
Patient in room PCU 3011. I have received report from SUSAN LAZCANO and had the opportunity to ask questions and assume patient care.
[2023-04-04] MEDS: insulin glargine (Lantus) pen - multi-dose SQ SCH (21:18)
[2023-04-04 22:00] VITALS: BP 132/74
[2023-04-05] MEDS: methylPREDNISolone sod succ/PF 40mg inj. IV SCH ×2 (00:02→08:00)
[2023-04-05 02:00] VITALS: BP 127/61
[2023-04-05] MEDS: ipratropium/albuterol 3ml nebule NEB SCH ×2 (03:00→07:48)
[2023-04-05] MEDS: piperacillin/tazo 3.375gm/50ml 50 ML IV SCH ×2 (04:42→12:53)
[2023-04-05 06:22] LABS: ALANINE AMINOTRANSFERASE 18 U/L (12-78); ALBUMIN 2.8 G/DL (3.4-5.0); ALBUMIN/GLOBULIN RATIO 0.7 (1.1-1.5); ALKALINE PHOSPHATASE 53 IU/L (46-116); ANION GAP 5 (8-16); ASPARTATE AMINO TRANSFERASE 16 U/L (10-37); BILIRUBIN,TOTAL 0.4 MG/DL (0.1-1.0); BLOOD UREA NITROGEN 35 MG/DL (7-18); BUN/CREATININE RATIO 28.7 (10.0-20.0); CALCIUM 9.3 MG/DL (8.5-10.1); CHLORIDE 97 MMOL/L (99-107); CREATININE 1.22 MG/DL (0.40-0.90); GLUCOSE 229 MG/DL (70-104); MAGNESIUM 2.3 MG/DL (1.5-2.4); POTASSIUM 4.3 MMOL/L (3.5-5.1); SODIUM 139 MMOL/L (135-145); TOTAL CARBON DIOXIDE 36.6 MMOL/L (24-32); eGFR 43 ML/MIN
[2023-04-05 06:36] LABS: BASOPHILS % (AUTO) 0.2 % (0-1); EOSINOPHILS % (AUTO) 0 % (0-6); HEMATOCRIT 40.1 % (35.0-45.0); HEMOGLOBIN 12.8 g/dl (12.0-16.0); LYMPHOCYTES # (AUTO) 0.6 X10'3 (1.1-4.8); LYMPHOCYTES % (AUTO) 5.6 % (21-51); MEAN CORPUSCULAR HEMOGLOBIN 23.9 PG (27.0-31.0); MEAN CORPUSCULAR HGB CONC 31.9 g/dL (33.0-36.5); MEAN CORPUSCULAR VOLUME 74.9 FL (78-98); MEAN PLATELET VOLUME 9.8 FL (7.4-10.4); MONOCYTES # (AUTO) 0.4 X10'3 (0-0.9); MONOCYTES % (AUTO) 4.1 % (2-12); NEUTROPHILS # (AUTO) 9.2 X10'3 (1.8-7.7); NEUTROPHILS % (AUTO) 90.1 % (42-75); PLATELET COUNT 215 X10'3 (140-440); RED BLOOD COUNT 5.36 X10'6 (4.20-5.60); RED CELL DISTRIBUTION WIDTH 18.3 % (11.5-14.5); WHITE BLOOD COUNT 10.2 X10'3 (4.5-11.0)
[2023-04-05 07:00] VITALS: BP_SYST 121; BP_SYST 127; BP_DIAS 61
[2023-04-05] MEDS: budesonide 0.5mg/2ml UD nebule IH SCH (07:48)
[2023-04-05] MEDS: K and/or MAG REPLACEMENT MC SCH (08:00)
[2023-04-05] MEDS: lactose-reduced food (Ensure Enlive) - 237ml bottle PO SCH ×3 (08:00→09:31)
[2023-04-05] MEDS: DICLOFENAC SODIUM 1% gel 1 APPLIC APPLIC TP SCH ×2 (08:00→13:00)
[2023-04-05] MEDS: heparin, porcine 5000 units/ml vial SQ SCH (08:00)
[2023-04-05] MEDS: carVEDilol 3.125mg tablet PO SCH (09:25)
[2023-04-05] MEDS: aspirin 81mg, enteric-coated 1 TAB TABLET.DR PO SCH (09:25)
[2023-04-05] MEDS: atorvastatin 20mg tablet PO SCH (09:25)
[2023-04-05] MEDS: docusate sod 100mg capsule PO SCH (09:25)
[2023-04-05] MEDS: furosemide 40mg tablet PO SCH (09:26)
[2023-04-05] MEDS: insulin Lispro (HumaLOG) vial - multi-dose SQ SCH ×2 (10:41→13:27)
[2023-04-05 11:43] VITALS: BP 137/83
[2023-04-05] MEDS ORDERED: AMOX-580 PO (13:37)
[2023-04-05] MEDS ORDERED: LACT1CAP55 PO (13:37)
== END 2023-04-05 16:25 | disposition home health service (06) | DRG 871 ==
LOC: ER 17:56 → ED HOLD 22:38 → EDBEDREQ 04-02 00:54 → PCU 3S 04-02 01:30
PROVIDERS: ADMIT Internal Medicine; ATTEND Family Medicine
DX: A41.9 Sepsis, unspecified organism (principal); J18.9 Pneumonia, unspecified organism; J44.1 Chronic obstructive pulmonary disease with (acute) exacerbation; C34.90 Malignant neoplasm of unspecified part of unspecified bronchus or lung; C79.31 Secondary malignant neoplasm of brain; J44.0 Chronic obstructive pulmonary disease with (acute) lower respiratory infection; Z66 Do not resuscitate; E78.00 Pure hypercholesterolemia, unspecified; I11.0 Hypertensive heart disease with heart failure; G47.30 Sleep apnea, unspecified; E11.65 Type 2 diabetes mellitus with hyperglycemia; Z60.2 Problems related to living alone; I50.9 Heart failure, unspecified; N28.9 Disorder of kidney and ureter, unspecified; G89.29 Other chronic pain; K21.9 Gastro-esophageal reflux disease without esophagitis; I25.10 Atherosclerotic heart disease of native coronary artery without angina pectoris; I25.2 Old myocardial infarction; Z80.9 Family history of malignant neoplasm, unspecified; Z85.3 Personal history of malignant neoplasm of breast; Z87.11 Personal history of peptic ulcer disease; Z87.891 Personal history of nicotine dependence; Z88.1 Allergy status to other antibiotic agents; Z88.2 Allergy status to sulfonamides; Z95.1 Presence of aortocoronary bypass graft; Z88.5 Allergy status to narcotic agent; Z88.8 Allergy status to other drugs, medicaments and biological substances; Z79.899 Other long term (current) drug therapy; Z99.81 Dependence on supplemental oxygen
CPT/HCPCS: 36415; 36600; 71045; 80053; 82803; 82948; 83605; 83735; 83880; 84132; 84145; 85007; 85008; 85018; 85025; 87040; 87081; 87324; 87449; 93005; 94640; 94760; 97116; 97161; 97530; 99285; A4615; A4620; A6455; G0378; J1644; J1815; J2543; J2920; J2930; J7030; J7040